=== PATIENT | female | born 1995 | race Caucasian/White ===

== ENCOUNTER 2020-04-30 05:13 | Inpatient (IN) | payer OTHER ==
[~2020-04-30] VITALS: Ht 175.3 cm; Wt 120.0 kg
[2020-04-30 05:15] VITALS: BP 124/68
[2020-04-30] MEDS ORDERED: MISOPROSTOL 200 MCG TABLET ONE (05:27)
[2020-04-30] MEDS ORDERED: LIDOCAINE 1%, 20ML ONE (05:27)
[2020-04-30] MEDS ORDERED: OXYTOCIN 30U/ 0.9% NaCL 500ML 500 ML ONE ×2 (05:28→23:56)
[2020-04-30] MEDS: LACTATED RINGERS 1,000 ML IV SCH ×2 (05:35→12:55)
[2020-04-30] MEDS ORDERED: OXYTOCIN 30U/ 0.9% NaCL 500ML 500 ML IV PRN (05:36)
[2020-04-30] MEDS ORDERED: OXYTOCIN 30U/ 0.9% NaCL 500ML 500 ML IV ONE (05:36)
[2020-04-30] MEDS ORDERED: D5%-LACTATED RINGERS 1,000 ML IV SCH (05:36)
[2020-04-30] MEDS ORDERED: FENTANYL PF 100 MCG/2ML IVPush PRN (06:00)
[2020-04-30] MEDS ORDERED: ONDANSETRON 2MG/ML, 2ML IVPush PRN (06:00)
[2020-04-30] MEDS ORDERED: SODIUM CHLORIDE FLUSH 10ML SYR IVF PRN (06:00)
[2020-04-30] MEDS ORDERED: TERBUTALINE 1 MG/ML, 1ML SQ PRN (06:00)
[2020-04-30] MEDS ORDERED: TERBUTALINE 1 MG/ML, 1ML IVPush PRN (06:00)
[2020-04-30] MEDS ORDERED: FENTANYL PF 100 MCG/2ML IV PRN (06:00)
[2020-04-30] MEDS ORDERED: METOCLOPRAMIDE 5 MG/ML, 2ML IVPush PRN (06:00)
[2020-04-30] MEDS ORDERED: ALUMINUM/MAG/SIMETHICONE 30 ML UDC PO PRN (06:00)
[2020-04-30] MEDS ORDERED: SODIUM CITRATE/CITRIC ACID 30 ML UDC PO PRN (06:00)
[2020-04-30] MEDS ORDERED: CALCIUM CARBONATE 500 MG TAB.CHEW PO PRN (06:00)
[2020-04-30 06:17] LABS: BASOPHILS # (AUTO) 0.03 x10^3/uL (0-0.1); BASOPHILS % (AUTO) 0 % (0-1); EOSINOPHILS # (AUTO) 0.04 x10^3/uL (0-0.4); EOSINOPHILS % (AUTO) 0 % (1-7); LYMPHOCYTES # (AUTO) 1.75 x10^3/uL (1-3.4); LYMPHOCYTES % (AUTO) 15 % (22-44); MD NO; MEAN CORPUSCULAR HEMOGLOBIN 25.4 pg (27.0-34.8); MEAN CORPUSCULAR HGB CONC 32.3 g/dL (32.4-35.8); MEAN CORPUSCULAR VOLUME 78.6 fL (80-100); MEAN PLATELET VOLUME 9.4 fL (7.4-10.4); MONOCYTES # (AUTO) 0.71 x10^3/uL (0.2-0.8); MONOCYTES % (AUTO) 6 % (2-9); NEUTROPHILS # (AUTO) 9.15 x10^3/uL (1.8-6.8); NEUTROPHILS % (AUTO) 78 % (42-75); PLATELET COUNT 245 x10^3/uL (130-400); RED BLOOD COUNT 4.24 x10^6/uL (3.82-5.3); RED CELL DISTRIBUTION WIDTH 15.9 % (9.6-15.2)
[2020-04-30] MEDS ORDERED: MISOPROSTOL 25 MCG TABLET ONE ×2 (19:53→23:56)
[2020-04-30 20:01] VITALS: BP 126/78
[2020-04-30] MEDS: MISOPROSTOL 25 MCG TABLET VG PRN (20:02)
[2020-04-30] MEDS ORDERED: LACTATED RINGERS 1,000 ML IV SCH (22:38)
[2020-04-30] MEDS ORDERED: EPHEDRINE 50 MG/ML, 1ML IVPush PRN (23:00)
[2020-04-30] MEDS ORDERED: LACTATED RINGERS 1,000 ML IVBOLUS PRN (23:00)
[2020-05-01] MEDS: MISOPROSTOL 25 MCG TABLET VG PRN (00:10)
[2020-05-01] MEDS ORDERED: FAMOTIDINE 20 MG TABLET PO PRN (00:30)
[2020-05-01] MEDS ORDERED: MISOPROSTOL 25 MCG TABLET VG PRN (00:30)
[2020-05-01] MEDS ORDERED: FAMOTIDINE 20 MG TABLET ONE (00:34)
[2020-05-01] MEDS ORDERED: FAMOTIDINE 10 MG TAB PO PRN (01:00)
[2020-05-01] MEDS: LACTATED RINGERS 1,000 ML IV SCH ×2 (02:25→05:08)
[2020-05-01] MEDS ORDERED: FENTANYL PF 100 MCG/2ML ONE (06:58)
[2020-05-01] MEDS ORDERED: BUPIVACAINE 0.25% ONE (06:59)
[2020-05-01] MEDS: FENTANYL/BUPIV./NS/PF 250 ML EPIDCONT SCH ×2 (09:58→12:10)
[2020-05-01] MEDS ORDERED: LACTATED RINGERS 1,000 ML IV SCH (09:58)
[2020-05-01] MEDS ORDERED: EPHEDRINE 50 MG/ML, 1ML IVPush PRN (10:00)
[2020-05-01] MEDS ORDERED: LACTATED RINGERS 1,000 ML IVBOLUS PRN (10:00)
[2020-05-01] MEDS ORDERED: ONDANSETRON 2MG/ML, 2ML IVPush PRN (10:00)
[2020-05-01] MEDS ORDERED: OXYcodone/APAP 5/325MG TABLET PO PRN ×2 (10:30)
[2020-05-01] MEDS ORDERED: ONDANSETRON 2MG/ML, 2ML IV PRN (10:30)
[2020-05-01] MEDS ORDERED: SIMETHICONE 80 MG CHEW TAB PO PRN (10:30)
[2020-05-01] MEDS ORDERED: MISOPROSTOL 200 MCG TABLET PR PRN (10:30)
[2020-05-01] MEDS ORDERED: ACETAMINOPHEN 325 MG TABLET PO PRN ×2 (10:30)
[2020-05-01] MEDS ORDERED: OXYTOCIN 30U/ 0.9% NaCL 500ML 500 ML ONE (10:43)
[2020-05-01] MEDS: OXYTOCIN 30U/ 0.9% NaCL 500ML 500 ML IV SCH ×2 (11:24→20:30)
[2020-05-01 11:57] VITALS: BP 138/88
[2020-05-01] MEDS: IBUPROFEN 600 MG TABLET PO PRN ×2 (14:19→21:55)
[2020-05-01 15:56] VITALS: BP 125/75
[2020-05-01 19:32] LABS: BASOPHILS # (AUTO) 0.02 x10^3/uL (0-0.1); BASOPHILS % (AUTO) 0 % (0-1); EOSINOPHILS # (AUTO) 0.03 x10^3/uL (0-0.4); EOSINOPHILS % (AUTO) 0 % (1-7); LYMPHOCYTES # (AUTO) 1.41 x10^3/uL (1-3.4); LYMPHOCYTES % (AUTO) 12 % (22-44); MD NO; MEAN CORPUSCULAR HEMOGLOBIN 25.6 pg (27.0-34.8); MEAN CORPUSCULAR HGB CONC 32.5 g/dL (32.4-35.8); MEAN CORPUSCULAR VOLUME 78.6 fL (80-100); MEAN PLATELET VOLUME 9.3 fL (7.4-10.4); MONOCYTES # (AUTO) 0.61 x10^3/uL (0.2-0.8); MONOCYTES % (AUTO) 5 % (2-9); NEUTROPHILS # (AUTO) 9.88 x10^3/uL (1.8-6.8); NEUTROPHILS % (AUTO) 83 % (42-75); PLATELET COUNT 212 x10^3/uL (130-400); RED BLOOD COUNT 4.11 x10^6/uL (3.82-5.3); RED CELL DISTRIBUTION WIDTH 16.5 % (9.6-15.2)
[2020-05-01 20:55] VITALS: BP 123/83
[2020-05-01] MEDS: DOCUSATE 100 MG CAPSULE PO PRN (21:55)
[2020-05-02 00:15] VITALS: BP 118/74
[2020-05-02] MEDS: IBUPROFEN 600 MG TABLET PO PRN (05:27)
[2020-05-02] MEDS: OXYTOCIN 30U/ 0.9% NaCL 500ML 500 ML IV SCH (06:30)
[2020-05-02 07:30] VITALS: BP 120/75
[2020-05-02] MEDS ORDERED: PRENATAL VIT/IRON/FA 1 EACH TABLET PO SCH (09:00)
[2020-05-02] MEDS: DOCUSATE 100 MG CAPSULE PO PRN (09:15)
[2020-05-02] MEDS ORDERED: IBUP-1222 PO (11:31)
== END 2020-05-02 14:55 | disposition home or self-care (01) | DRG 807 ==
LOC: LDIP 05:13 → 2NW 05-01 11:45
PROVIDERS: ADMIT Obstetrics & Gynecology; ATTEND Obstetrics & Gynecology
PROC: 10E0XZZ Delivery of Products of Conception, External Approach (ICD-10-PCS; principal; 2020-05-01)
PROC: 3E0R3BZ Introduction of Anesthetic Agent into Spinal Canal, Percutaneous Approach (ICD-10-PCS; 2020-05-01)
PROC: 00HU33Z Insertion of Infusion Device into Spinal Canal, Percutaneous Approach (ICD-10-PCS; 2020-05-01)
PROC: 0HQ9XZZ Repair Perineum Skin, External Approach (ICD-10-PCS; 2020-05-01)
PROC: 3E0P7VZ Introduction of Hormone into Female Reproductive, Via Natural or Artificial Opening (ICD-10-PCS; 2020-05-01)
PROC: 10H07YZ Insertion of Other Device into Products of Conception, Via Natural or Artificial Opening (ICD-10-PCS; 2020-05-01)
DX: O69.81X0 Labor and delivery complicated by cord around neck, without compression, not applicable or unspecified (principal); Z37.0 Single live birth; O70.0 First degree perineal laceration during delivery; O76 Abnormality in fetal heart rate and rhythm complicating labor and delivery; O99.02 Anemia complicating childbirth; D64.9 Anemia, unspecified; Z88.2 Allergy status to sulfonamides; Z88.8 Allergy status to other drugs, medicaments and biological substances; Z91.018 Allergy to other foods; Z3A.39 39 weeks gestation of pregnancy
CPT/HCPCS: 36415; J7121; 85025; 86592; 86850; 86900; G0378; J2590; J3010; J7120